=== PATIENT | male | born 1975 | race Caucasian/White ===

== ENCOUNTER → 2017-11-01 | Outpatient (CLI) | payer BC ==
[2017-11-01 16:22] LABS: CSF PROTEIN 43 mg/dL (15-45); GLUCOSE, CSF 62 mg/dL (40-80)
[2017-11-01 16:36] LABS: APPEARANCE CLEAR/COLORLESS; CSF TUBE NUMBER TUBE #4; RED CELL COUNT 1 /MM^3 (0-1); WHITE CELL COUNT 1 /MM^3 (0-5)
== END | disposition home or self-care (01) ==
LOC: RAD 14:31
PROVIDERS: Psychiatry & Neurology Neurology
PROC: 009U3ZZ Drainage of Spinal Canal, Percutaneous Approach (ICD-10-PCS; principal; 2017-11-01)
DX: I69.998 Other sequelae following unspecified cerebrovascular disease (principal); H93.11 Tinnitus, right ear; R42 Dizziness and giddiness; G37.9 Demyelinating disease of central nervous system, unspecified
CPT/HCPCS: 62270; 77003; 82040 90; 82042 90; 82784 90; 82945; 83916 90; 84157; 86617 90; 86618 90; 89051